=== PATIENT | male | born 1970 | race Caucasian/White ===

== ENCOUNTER 2025-01-23 08:04 | Emergency (ER) | payer OTHER ==
[~2025-01-23] VITALS: Ht 172.7 cm; Wt 77.1 kg
[2025-01-23] MEDS ORDERED: NEOMY/BACITRA/POLYMYXIN B OINT UD PACKET TP ONE (09:12)
[2025-01-23] MEDS: NEOMY/BACITRA/POLYMYXIN B OINT UD PACKET TP ONE (09:21)
[2025-01-23] MEDS ORDERED: CLIN300C12 PO (09:23)
[2025-01-23 09:38] VITALS: BP 143/87; TEMP 98.2; O2SAT 99
== END 2025-01-23 09:44 | disposition home or self-care (01) ==
LOC: ER 08:04
DX: L02.413 Cutaneous abscess of right upper limb (principal); F15.10 Other stimulant abuse, uncomplicated; F17.200 Nicotine dependence, unspecified, uncomplicated; R22.31 Localized swelling, mass and lump, right upper limb; F41.9 Anxiety disorder, unspecified; F32.A Depression, unspecified; F19.10 Other psychoactive substance abuse, uncomplicated; Z88.7 Allergy status to serum and vaccine; Z90.49 Acquired absence of other specified parts of digestive tract
CPT/HCPCS: A4606; A4663